=== PATIENT | male | born 1995 | race Caucasian/White ===

== ENCOUNTER 2017-10-22 15:24 | Emergency (ER) | payer OTHER ==
[2017-10-22] MEDS: LISSAMINE GREEN OPHTH 1.5 MG STRIP OS (17:15)
[2017-10-22] MEDS: TETRACAINE 0.5% OPHTH SOLN 4ML OS (17:15)
[2017-10-22] MEDS: OFLOXACIN 0.3 % (OCUFLOX) OPTH SOL 5ML OS (18:11)
[2017-10-22] MEDS: CYCLOPENTOLATE 1% OPHTH SOLN 2 ML BTL OS (18:11)
== END 2017-10-22 18:26 | disposition home or self-care (01) ==
LOC: M ED 15:24
DX: S05.02XA Injury of conjunctiva and corneal abrasion without foreign body, left eye, initial encounter (principal); X58.XXXA Exposure to other specified factors, initial encounter; Y92.89 Other specified places as the place of occurrence of the external cause; Z88.1 Allergy status to other antibiotic agents; Z79.2 Long term (current) use of antibiotics
CPT/HCPCS: 99283